=== PATIENT | male | born 1965 | race Caucasian/White ===

== ENCOUNTER → 2022-02-02 | Day surgery (SDC) | payer OTHER ==
[~2022-02-02] MED LIST: B&O 60MG R/S 60 MG SUPP PR ONE; BUPIVACAINE 0.25% 30ML SDV ONE; DEXAMETHASONE SOD PHOS INJ 4 MG/ML SDV ONE; FENTANYL CITRATE/PF 100MCG/2 ML INJ ONE; FISH OIL 1,001000 M1 PO; GENTAMICIN 80MG/NS 100 ML 200 ML IV ONE; IOHEXOL 300 MG/ML 30ML INFUS..BTL ONE; KETOROLAC TROMETHAMINE 30 MG/ML VIAL ONE; LIDOCAINE HCL 2% LOCAL INJ 5 ML SDV VIAL INJ ONE; METOPROLOL SUCC25 MG PO; MIDAZOLAM HCL 2 MG/2 ML VIAL ONE; MUPIROCIN 2% OINT 22 GM TUBE ONE; ONDANSETRON HCL INJ 2MG/ML 2ML 2 MG/ML VIAL ONE; POVIDONE IODINE 0.05% 0.05 % ML PO ONE; PROPOFOL IV EMULSION 10 MG/ML 20 ML VIAL ONE; SEVOFLURANE INHAL SOLN 250 ML PEN BTL ONE; TURMERIC538 MG PO
[2022-02-02 15:38] VITALS: BP 143/82
== END | disposition home or self-care (01) ==
LOC: OR 10:52
PROVIDERS: ATTEND Urology
DX: C61 Malignant neoplasm of prostate (principal); N50.89 Other specified disorders of the male genital organs; N43.3 Hydrocele, unspecified; N40.0 Benign prostatic hyperplasia without lower urinary tract symptoms; N13.8 Other obstructive and reflux uropathy; N32.89 Other specified disorders of bladder; I10 Essential (primary) hypertension; Z01.810 Encounter for preprocedural cardiovascular examination; Z01.812 Encounter for preprocedural laboratory examination; Z20.822 Contact with and (suspected) exposure to COVID-19; Z79.899 Other long term (current) drug therapy
CPT/HCPCS: 52005; 54512; 55060; 55700; 74420; 76872; 76998; 88304; 88305; 93005; C1758; J0690; J1100; J1580; J1885; J2001; J2250; J2405; J2704; J3010; Q9967; U0002

== ENCOUNTER 2022-03-24 07:05 | Inpatient (IN) | payer OTHER ==
[2022-03-22 11:41] LABS: BASOPHILS # (AUTO) 0.1 (0.0-0.1); BASOPHILS % 1.7 % (0.0-1.0); EOSINOPHILS # (AUTO) 0.4 (0.0-0.4); EOSINOPHILS % 7.2 % (0.0-6.0); HEMATOCRIT 44.5 % (38.2-49.6); HEMOGLOBIN 14.8 g/dL (14.0-18.0); LYMPHOCYTES # (AUTO) 1.5 (1.0-3.2); LYMPHOCYTES % 25.1 % (18.0-39.1); MEAN CORPUSCULAR HEMOGLOBIN 34.5 pg (28-32); MEAN CORPUSCULAR HGB CONC 33.3 g/dL (31-35); MEAN CORPUSCULAR VOLUME 103.7 fL (81-99); MONOCYTES # (AUTO) 0.6 (0.2-0.8); MONOCYTES % 9.7 % (4.4-11.3); NEUTROPHILS # (AUTO) 3.4 (2.1-6.9); NEUTROPHILS % 56.3 % (38.7-80.0); PLATELET COUNT 228 x10e3/uL (140-360); RED BLOOD COUNT 4.29 x10e6/uL (4.3-5.7); RED CELL DISTRIBUTION WIDTH 13.2 % (11.7-14.4)
[~2022-03-24] VITALS: Ht 177.8 cm; Wt 72.6 kg
[~2022-03-24 07:05] MED LIST changes: -B&O 60MG R/S 60 MG SUPP PR ONE; -BUPIVACAINE 0.25% 30ML SDV ONE; -DEXAMETHASONE SOD PHOS INJ 4 MG/ML SDV ONE; -FENTANYL CITRATE/PF 100MCG/2 ML INJ ONE; -GENTAMICIN 80MG/NS 100 ML 200 ML IV ONE; -IOHEXOL 300 MG/ML 30ML INFUS..BTL ONE; -KETOROLAC TROMETHAMINE 30 MG/ML VIAL ONE; -LIDOCAINE HCL 2% LOCAL INJ 5 ML SDV VIAL INJ ONE; -MIDAZOLAM HCL 2 MG/2 ML VIAL ONE; -MUPIROCIN 2% OINT 22 GM TUBE ONE; -ONDANSETRON HCL INJ 2MG/ML 2ML 2 MG/ML VIAL ONE; -POVIDONE IODINE 0.05% 0.05 % ML PO ONE; -PROPOFOL IV EMULSION 10 MG/ML 20 ML VIAL ONE; -SEVOFLURANE INHAL SOLN 250 ML PEN BTL ONE
[2022-03-24] MEDS ORDERED: GENTAMICIN 80MG/NS 100 ML 200 ML IV ONE (08:03)
[2022-03-24] MEDS ORDERED: INDIGOTINDISULFONATE SODIUM 8 MG/ML AMP IJ ONE (09:10)
[2022-03-24] MEDS ORDERED: LIDOCAINE HCL 2% LOCAL INJ 5 ML SDV VIAL INJ ONE (12:02)
[2022-03-24] MEDS ORDERED: GLYCOPYRROLATE INJ 0.2 MG/ML VIAL ONE (12:02)
[2022-03-24] MEDS ORDERED: PROPOFOL IV EMULSION 10 MG/ML 20 ML VIAL ONE (12:02)
[2022-03-24] MEDS ORDERED: SEVOFLURANE INHAL SOLN 250 ML PEN BTL ONE (12:02)
[2022-03-24] MEDS ORDERED: ONDANSETRON HCL INJ 2MG/ML 2ML 2 MG/ML VIAL ONE (12:02)
[2022-03-24] MEDS ORDERED: POVIDONE IODINE 0.05% 0.05 % ML PO ONE (12:02)
[2022-03-24] MEDS ORDERED: NEOSTIGMINE 1 MG/ML 10ML VIAL ONE (12:02)
[2022-03-24] MEDS ORDERED: ROCURONIUM BROMIDE 10 MG/ML 5ML VIAL IV ONE (12:02)
[2022-03-24] MEDS ORDERED: DEXAMETHASONE SOD PHOS INJ 4 MG/ML SDV ONE (12:02)
[2022-03-24] MEDS ORDERED: MORPHINE SULFATE 1 MG/ML 30ML PCA IV PRN (12:30)
[2022-03-24] MEDS ORDERED: ONDANSETRON HCL INJ 2MG/ML 2ML 2 MG/ML VIAL IV PRN (12:30)
[2022-03-24] MEDS ORDERED: ACETAMINOPHEN/CODEINE 300MG - 30MG TAB PO PRN (12:30)
[2022-03-24] MEDS ORDERED: DIPHENHYDRAMINE HCL 25 MG CAP PO PRN (12:30)
[2022-03-24] MEDS ORDERED: PHENAZOPYRIDINE HCL 100 MG TAB PO PRN (12:30)
[2022-03-24] MEDS ORDERED: NALOXONE HCL INJ 0.4 MG/ML AMP IV PRN (12:30)
[2022-03-24] MEDS ORDERED: FENTANYL CITRATE/PF 100MCG/2 ML INJ ONE ×2 (12:56→13:20)
[2022-03-24] MEDS ORDERED: MIDAZOLAM HCL 2 MG/2 ML VIAL ONE (13:20)
[2022-03-24] MEDS ORDERED: Morphine 10mg syringe 10 MG/ML INJ ONE (13:20)
[2022-03-24 13:22] LABS: BASOPHILS # (AUTO) 0.1 (0.0-0.1); BASOPHILS % 0.7 % (0.0-1.0); EOSINOPHILS # (AUTO) 0.2 (0.0-0.4); EOSINOPHILS % 1.2 % (0.0-6.0); HEMATOCRIT 42.6 % (38.2-49.6); HEMOGLOBIN 13.7 g/dL (14.0-18.0); LYMPHOCYTES # (AUTO) 1.7 (1.0-3.2); LYMPHOCYTES % 12.8 % (18.0-39.1); MEAN CORPUSCULAR HGB CONC 32.2 g/dL (31-35); MONOCYTES # (AUTO) 0.5 (0.2-0.8); MONOCYTES % 3.7 % (4.4-11.3); NEUTROPHILS # (AUTO) 10.8 (2.1-6.9); NEUTROPHILS % 81.2 % (38.7-80.0); PLATELET COUNT 191 x10e3/uL (140-360); RED BLOOD COUNT 3.91 x10e6/uL (4.3-5.7); RED CELL DISTRIBUTION WIDTH 13.2 % (11.7-14.4)
[2022-03-24 13:40] LABS: ANION GAP 16.9 mmol/L (8-16); CALCIUM 8.4 mg/dL (8.4-10.2); CREATININE, SERUM 0.7 mg/dL (0.72-1.25); POTASSIUM 3.9 mmol/L (3.5-5.1)
[2022-03-24 15:36] VITALS: BP 98/58
[2022-03-24 16:05] VITALS: BP 139/82
[2022-03-24] MEDS ORDERED: DOCUSATE SODIUM 100 MG CAP PO SCH (17:00)
[2022-03-24] MEDS: D5.45%NS/KCL 20MEQ 1,000 ML IV SCH ×2 (17:01→20:57)
[2022-03-24] MEDS ORDERED: ACETAMINOPHEN 1000 MG/100 ML IV PRN (18:00)
[2022-03-24 19:50] VITALS: BP 159/89
[2022-03-24 20:00] VITALS: BP 159/89
[2022-03-24] MEDS: DOCUSATE SODIUM 100 MG CAP PO SCH (20:57)
[2022-03-25] VITALS (8 sets, daily range): BP systolic 94–117; BP diastolic 57–74
[2022-03-25] MEDS: D5.45%NS/KCL 20MEQ 1,000 ML IV SCH ×2 (04:31→14:09)
[2022-03-25 06:39] LABS: BASOPHILS % 0.3 % (0.0-1.0); EOSINOPHILS % 0.1 % (0.0-6.0); HEMATOCRIT 36.2 % (38.2-49.6); HEMOGLOBIN 11.7 g/dL (14.0-18.0); LYMPHOCYTES # (AUTO) 1.5 (1.0-3.2); LYMPHOCYTES % 12.3 % (18.0-39.1); MEAN CORPUSCULAR HEMOGLOBIN 34.4 pg (28-32); MEAN CORPUSCULAR HGB CONC 32.3 g/dL (31-35); MEAN CORPUSCULAR VOLUME 106.5 fL (81-99); MONOCYTES # (AUTO) 1.4 (0.2-0.8); MONOCYTES % 11.5 % (4.4-11.3); NEUTROPHILS % 75.5 % (38.7-80.0); PLATELET COUNT 177 x10e3/uL (140-360); RED CELL DISTRIBUTION WIDTH 13.2 % (11.7-14.4)
[2022-03-25 07:12] LABS: CREATININE, SERUM 0.76 mg/dL (0.72-1.25)
[2022-03-25] MEDS: DOCUSATE SODIUM 100 MG CAP PO SCH ×2 (09:00→20:18)
[2022-03-25 11:10] LABS: EOSINOPHILS % (MANUAL) 1 % (0-7); LYMPHOCYTES % (MANUAL) 18 % (19-48); MONOCYTES % (MANUAL) 6 % (3.4-9.0); NEUTROPHILS % (MANUAL) 75 % (40-74); PLATELET ESTIMATE ADEQUATE; PLATELET MORPHOLOGY COMMENT NORMAL; RBC MORPHOLOGY COMMENT NORMAL
[2022-03-25] MEDS: FAMOTIDINE 20 MG TAB PO SCH (16:26)
[2022-03-26] VITALS: BP 121/71
[2022-03-26] MEDS: D5.45%NS/KCL 20MEQ 1,000 ML IV SCH (03:33)
[2022-03-26 04:00] VITALS: BP 114/67
[2022-03-26 05:59] LABS: BASOPHILS # (AUTO) 0.1 (0.0-0.1); BASOPHILS % 0.7 % (0.0-1.0); EOSINOPHILS # (AUTO) 0.2 (0.0-0.4); EOSINOPHILS % 2.7 % (0.0-6.0); HEMATOCRIT 33.7 % (38.2-49.6); HEMOGLOBIN 10.5 g/dL (14.0-18.0); LYMPHOCYTES # (AUTO) 2.4 (1.0-3.2); LYMPHOCYTES % 27.3 % (18.0-39.1); MEAN CORPUSCULAR HEMOGLOBIN 34.2 pg (28-32); MEAN CORPUSCULAR HGB CONC 31.2 g/dL (31-35); MEAN CORPUSCULAR VOLUME 109.8 fL (81-99); MONOCYTES # (AUTO) 0.9 (0.2-0.8); NEUTROPHILS # (AUTO) 5.2 (2.1-6.9); PLATELET COUNT 160 x10e3/uL (140-360); RED BLOOD COUNT 3.07 x10e6/uL (4.3-5.7); RED CELL DISTRIBUTION WIDTH 13.6 % (11.7-14.4)
[2022-03-26 06:28] LABS: ANION GAP 11.7 mmol/L (8-16); CALCIUM 8.1 mg/dL (8.4-10.2); CREATININE, SERUM 0.73 mg/dL (0.72-1.25); POTASSIUM 3.7 mmol/L (3.5-5.1)
[2022-03-26] MEDS: FAMOTIDINE 20 MG TAB PO SCH (08:00)
[2022-03-26 08:01] VITALS: BP 116/69
[2022-03-26] MEDS ORDERED: METOPROLOL SUCCINATE 25 MG TAB XL PO SCH (09:00)
[2022-03-26] MEDS: DOCUSATE SODIUM 100 MG CAP PO SCH (09:28)
[2022-03-26 11:22] VITALS: BP 125/70
[2022-03-26] MEDS ORDERED: TYLENOL #3 PO (12:14)
[2022-03-26] MEDS ORDERED: CIPRO500 MG PO (12:14)
== END 2022-03-26 14:24 | disposition home or self-care (01) | DRG 707 ==
LOC: OR 07:05 → PACU V 12:22 → MED/SURG 15:16 → MED/SURG2 03-25 23:16
PROVIDERS: ADMIT Urology; ATTEND Urology
PROC: 0VT30ZZ Resection of Bilateral Seminal Vesicles, Open Approach (ICD-10-PCS; 2022-03-24)
PROC: 0VTQ0ZZ Resection of Bilateral Vas Deferens, Open Approach (ICD-10-PCS; 2022-03-24)
PROC: 0VT00ZZ Resection of Prostate, Open Approach (ICD-10-PCS; principal; 2022-03-24 10:07)
DX: C61 Malignant neoplasm of prostate (principal); D62 Acute posthemorrhagic anemia; I10 Essential (primary) hypertension; Z20.822 Contact with and (suspected) exposure to COVID-19
CPT/HCPCS: 36415; 80048; 83735; 85025; 86850; 86900; 88305; 88307; 88309; 88331; 88332; 94799; 96361; 96366; C1713; J0690; J1100; J1580; J2001; J2250; J2270; J2405; J2543; J2710; J3010

== ENCOUNTER → 2024-06-27 | Outpatient (REF) | payer OTHER ==
[~2024-06-27] MED LIST changes: +CIPRO500 MG PO; +TYLENOL #3 PO
== END ==
LOC: LAB 11:05
PROVIDERS: ATTEND Radiology Radiation Oncology
DX: C61 Malignant neoplasm of prostate (principal); Z51.0 Encounter for antineoplastic radiation therapy
CPT/HCPCS: 84152